=== PATIENT | female | born 1940 | race Caucasian/White ===

== ENCOUNTER 2019-02-10 05:43 | Inpatient (IN) | payer MEDICARE ==
[2019-02-02 13:53] LABS: CLARITY,URINE SLIGHTLY CLOUDY (Clear); COLOR,URINE YELLOW (Yellow); GLUCOSE, URINE NEGATIVE (Neg); KETONES,URINE NEGATIVE (Neg); LEUKOCYTE ESTERASE ,URINE SMALL (Neg); NITRITES, URINE NEGATIVE (Neg); OCCULT BLOOD,URINE NEGATIVE (Neg); PROTEIN,URINE NEGATIVE (Neg); UROBILINOGEN,URINE 0.2 E.U/dL (0.2-1.0)
[2019-02-02 13:53] LABS: BASOPHILS # (AUTO) 0.1 X10'3 (0-0.2); BASOPHILS % (AUTO) 1.3 % (0-1); EOSINOPHILS # (AUTO) 0.3 X10'3 (0-0.9); LYMPHOCYTES # (AUTO) 1.5 X10'3 (1.1-4.8); LYMPHOCYTES % (AUTO) 29.2 % (21-51); MEAN CORPUSCULAR HEMOGLOBIN 32.1 PG (27.0-31.0); MEAN CORPUSCULAR HGB CONC 33.6 g/dL (33.0-36.5); MEAN CORPUSCULAR VOLUME 95.5 FL (78-98); MONOCYTES # (AUTO) 0.5 X10'3 (0-0.9); MONOCYTES % (AUTO) 9.4 % (2-12); NEUTROPHILS # (AUTO) 2.9 X10'3 (1.8-7.7); NEUTROPHILS % (AUTO) 55.1 % (42-75); PRE OP HEMATOCRIT 38.5 % (35.0-45.0); PRE OP HEMOGLOBIN 12.9 g/dL (12.0-16.0); PRE OP PLATELET COUNT 149 X10'3 (140-440); RED BLOOD COUNT 4.03 X10'6 (4.20-5.60); RED CELL DISTRIBUTION WIDTH 13.8 % (11.5-14.5)
[2019-02-02 14:04] LABS: UA COLLECTION TYPE CLN CATCH MIDSTREAM
[2019-02-02 14:05] LABS: HYALINE CASTS 0-3 /LPF (NEGATIVE); SQUAMOUS EPITHELIAL CELL,UR MODERATE /LPF (FEW); TRANSITIONAL EPI CELLS,URINE MODERATE /HPF
[2019-02-02 14:06] LABS: BACTERIA,URINE 1+ /HPF (Neg); MUCUS STRANDS FEW /LPF (Neg)
[2019-02-02 14:07] LABS: RBC,URINE 0-2 /HPF (0-2)
[2019-02-02 14:11] LABS: PRE OP PROTIME 10.2 SECONDS (9.0-12.0)
[2019-02-02 14:15] LABS: ALBUMIN 3.7 G/DL (3.4-5.0); ALBUMIN/GLOBULIN RATIO 1.1 (1.1-1.5); ALKALINE PHOSPHATASE 79 IU/L (46-116); BLOOD UREA NITROGEN 25 MG/DL (7-18); BUN/CREATININE RATIO 27.8 (6.6-38.0); CALCIUM 9.6 MG/DL (8.5-10.1); CHLORIDE 104 MMOL/L (99-107); PRE OP ALT 27 U/L (30-65); PRE OP ANION GAP 10 (8-16); PRE OP AST 17 U/L (10-37); PRE OP BILIRUB, TOTAL 0.4 MG/DL (0.0-1.0); PRE OP GLUCOSE 119 MG/DL (70-104); PRE OP POTASSIUM 4.1 MMOL/L (3.4-5.1); PRE OP SODIUM 140 MMOL/L (135-145); TOTAL CARBON DIOXIDE 26.1 MMOL/L (24-32); TOTAL PROTEIN 7.2 G/DL (6.4-8.2); eGFR 61 ML/MIN
[2019-02-10] VITALS (17 sets, daily range): BP systolic 84–122; BP diastolic 40–72
[~2019-02-10] VITALS: Ht 162.6 cm; Wt 90.4 kg
[~2019-02-10 05:43] MED LIST: ALBU8.5H8 IH; BENA20TA82 PO; CALC-159 PO; ESCI5TAB PO; FLUT16SP26 BOTHNARES; MONT10TA21 PO; MULT-1085 PO; TRIA1TAB94 PO; albuterol 2.5 MG/3 ML nebule NEB ONE; cefazolin/dext.iso 2gm/100 ML IV ONE; famotidine 20mg tablet PO ONE; ringers solution, lacted 1,000 ML IV SCH; vancomycin inj 1,500 MG in normal saline 300ml IV soln IV ONE
[2019-02-10] MEDS ORDERED: LIDOcaine 1% (10mg/ml) 2ml vial ONE (06:28)
[2019-02-10] MEDS ORDERED: ROPIVAcaine 0.5% (5mg/ml) 30ml vial ONE (07:04)
[2019-02-10] MEDS ORDERED: ketorolac trometh. 30mg/ml inj. ONE (07:04)
[2019-02-10] MEDS ORDERED: fentaNYL/PF 50MCG/1 ML 2ML syringe ONE (07:26)
[2019-02-10] MEDS ORDERED: MIDAZolam 1mg/ml 10ml vial ONE (07:26)
[2019-02-10] MEDS ORDERED: ePHEDrine 50MG/ML INJ. ONE (07:42)
[2019-02-10] MEDS ORDERED: propofol inj 20 ML IV ONE (07:56)
[2019-02-10] MEDS ORDERED: tranexamic acid inj. 1,000 MG in normal saline 100ml IV soln 100 ML IV ONE ×3 (08:15→13:30)
[2019-02-10] MEDS ORDERED: ringers solution, lacted 1,000 ML IV SCH (08:54)
[2019-02-10] MEDS ORDERED: proCHLORperazine 10 MG/2 ml inj IV PRN (08:55)
[2019-02-10] MEDS ORDERED: meperidine/PF 25mg/ml syringe IV PRN ×3 (08:55)
[2019-02-10] MEDS ORDERED: ondansetron/PF 4mg/2ml inj IV PRN (08:55)
--- NOTE | 2019-02-10 10:38 | NUR ---
Received from OR via , accompanied by Anesthesiologist DR DUKE and report given by Anesthesiolgist. AWAKENS TO VOICE. VITALS STABLE. DRESSING DI. VIKAS PAIN. ABDUCTOR PILLOW IN PLACE. SENSATION TO THE FEET. FERNANDEZ WITH CLEAR URINE.
[2019-02-10] MEDS ORDERED: bisacodyl 10mg suppository rectal RC PRN (10:50)
[2019-02-10] MEDS ORDERED: CADD PCA waste documentation MC PRN (10:50)
[2019-02-10] MEDS ORDERED: naloxone 0.4 mg/ml inj IV PRN (10:50)
[2019-02-10] MEDS ORDERED: diphenhydrAMINE 25mg capsule PO PRN ×2 (10:50)
[2019-02-10] MEDS ORDERED: albuterol 2.5 MG/3 ML nebule NEB PRN ×2 (10:50→11:00)
[2019-02-10] MEDS ORDERED: magnesium hydroxide 30ml (MOM) UD suspension PO PRN (10:50)
[2019-02-10] MEDS ORDERED: mag hydrox/Alum hydrox/simeth 30ml oral suspension PO PRN (10:50)
[2019-02-10] MEDS ORDERED: HYDROcodone/acetaminophen 10/325mg tab PO PRN ×2 (10:50)
[2019-02-10] MEDS ORDERED: metoclopramide 5 mg/ml inj IV PRN (10:50)
[2019-02-10] MEDS ORDERED: acetaminophen 325mg tablet PO PRN (10:50)
[2019-02-10] MEDS ORDERED: HYDROmorphone/NS 1 mg/ml CADD 50 ML IV SCH (11:00)
--- NOTE | 2019-02-10 11:48 | NUR ---
Report called to receiving nurse. Transferred via [facility] . Special Issues communicated to receiving nurse. AWAKE AND ORIENTED. VITALS STABLE. DRESSING DI. STATES MILD DISCOMFORT TO RT HIP AREA. TO ORTHO RM [id number] AT THIS TIME.
[2019-02-10] MEDS: ondansetron/PF 4mg/2ml inj IV PRN (12:07)
[2019-02-10] MEDS: HYDROmorphone/NS 1 mg/ml CADD 50 ML IV SCH ×7 (12:07→23:00)
--- NOTE | 2019-02-10 14:22 | NUR ---
call from tele stating that pt is miguel down to the 30'4-40's, I talked to Diana Du and she advised fluids and keep the pt awake. Will continue to monitor
[2019-02-10] MEDS: gabapentin 300mg capsule PO SCH ×2 (14:36→20:30)
[2019-02-10] MEDS: acetaminophen 325mg tablet PO SCH ×2 (14:36→20:29)
[2019-02-10] MEDS: potassium cl 20mEq in 1/2 NS 1,000 ML IV SCH ×2 (16:53→18:50)
[2019-02-10] MEDS: ceFAZolin 1GM/D5W- ADD-VANTAGE 50 ML IV SCH ×2 (16:54→23:40)
[2019-02-10] MEDS ORDERED: vancomycin/NS 1 GM ADD-VANTAGE 250 ML IV SCH (20:00)
[2019-02-10] MEDS: sennosides/docusate sodium tablet PO SCH (20:00)
[2019-02-10] MEDS: CITALOpram 10mg tablet PO SCH (20:27)
[2019-02-10] MEDS: ascorbic acid 500mg tablet PO SCH (20:27)
[2019-02-10] MEDS: montelukast 10mg tablet PO SCH (20:29)
[2019-02-10] MEDS: lisinopril 20mg tablet PO SCH (21:00)
[2019-02-10] MEDS: sennosides 8.6mg tablet PO SCH (21:00)
[2019-02-11] MEDS: HYDROmorphone/NS 1 mg/ml CADD 50 ML IV SCH ×7 (01:00→13:00)
[2019-02-11 02:00] VITALS: BP 111/57
[2019-02-11] MEDS: acetaminophen 325mg tablet PO SCH ×4 (02:14→20:26)
[2019-02-11] MEDS: potassium cl 20mEq in 1/2 NS 1,000 ML IV SCH ×4 (02:14→21:48)
--- NOTE | 2019-02-11 06:06 | NUR ---
Problems reprioritized. Patient report given, questions answered & plan of care reviewed with MCKENNA Oshea. Patient stated that Percocet has been effective in the past.
[2019-02-11 06:10] VITALS: BP 99/45
[2019-02-11 06:12] LABS: BASOPHILS % (AUTO) 0.3 % (0-1); EOSINOPHILS # (AUTO) 0.1 X10'3 (0-0.9); EOSINOPHILS % (AUTO) 0.7 % (0-6); HEMATOCRIT 29.3 % (35.0-45.0); LYMPHOCYTES # (AUTO) 0.7 X10'3 (1.1-4.8); LYMPHOCYTES % (AUTO) 8.5 % (21-51); MEAN CORPUSCULAR HEMOGLOBIN 32.5 PG (27.0-31.0); MEAN CORPUSCULAR HGB CONC 34.2 g/dL (33.0-36.5); MEAN CORPUSCULAR VOLUME 95.1 FL (78-98); MEAN PLATELET VOLUME 9.8 FL (7.4-10.4); MONOCYTES # (AUTO) 0.6 X10'3 (0-0.9); MONOCYTES % (AUTO) 7.6 % (2-12); NEUTROPHILS # (AUTO) 6.4 X10'3 (1.8-7.7); NEUTROPHILS % (AUTO) 82.9 % (42-75); PLATELET COUNT 114 X10'3 (140-440); RED BLOOD COUNT 3.08 X10'6 (4.20-5.60); RED CELL DISTRIBUTION WIDTH 13.6 % (11.5-14.5); WHITE BLOOD COUNT 7.8 X10'3 (4.5-11.0)
[2019-02-11 06:25] LABS: ANION GAP 5 (8-16); CHLORIDE 106 MMOL/L (99-107); POTASSIUM 4.3 MMOL/L (3.5-5.1); SODIUM 139 MMOL/L (135-145)
--- NOTE | 2019-02-11 06:27 | NUR ---
I have received patient report from Sana Ratliff RN
--- NOTE | 2019-02-11 06:36 | NUR ---
Problems reprioritized. Patient report given, questions answered & plan of care reviewed with MCKENNA Oshea.
[2019-02-11] MEDS: sennosides/docusate sodium tablet PO SCH ×2 (08:00→20:00)
[2019-02-11] MEDS: ascorbic acid 500mg tablet PO SCH ×2 (08:02→20:26)
[2019-02-11] MEDS: multivitamins, therapeutics tablet PO SCH (08:02)
[2019-02-11] MEDS: calcium carbonate/vitamin D3 tablet PO SCH (08:02)
[2019-02-11] MEDS: gabapentin 300mg capsule PO SCH ×3 (08:03→20:27)
[2019-02-11] MEDS: enoxaparin 40mg/0.4ml syringe SQ SCH (08:04)
--- NOTE | 2019-02-11 09:45 | NUR ---
Patient homavac drain fell out during transfer from chair to bed. I will let Dr. Aceves know this.
[2019-02-11 10:00] VITALS: BP 111/51
--- NOTE | 2019-02-11 14:32 | NUR ---
I spoke to Dr. Aceves about hemovac falling apart and removing it. I also told him since patient was allergic to norco and has taken percoset before that she would like that instead when cadd comes down. He ordered 1 or 2 10mg percoset q4 hrs.
[2019-02-11] MEDS: oxyCODONE/APAP 10/325mg tablet PO PRN ×2 (15:08→22:04)
--- NOTE | 2019-02-11 15:45 | NUR ---
Joint replacement: Pt seen at bedside with friends present provided with written and verbal protein education and RD contact information. Pt endorses an "okay" appetite however documented with 100% PO intake at breakfast this morning and pt reports 100% PO intake of protein at lunch. Pt agreeable to yogurt BIDBD and cottage cheese QD with lunch, pt also requests beef or chicken broth TID. All food preferences d/w dietary. Pt denies any food allergies or difficulty chewing/swallowing. Will continue to follow. Addendum: 02/11/19 at [address] Amended: Links added.
[2019-02-11 18:00] VITALS: BP 110/53
--- NOTE | 2019-02-11 18:27 | NUR ---
Patient report given to Sana Ratliff RN
[2019-02-11] MEDS: CITALOpram 10mg tablet PO SCH (20:26)
[2019-02-11] MEDS: montelukast 10mg tablet PO SCH (20:26)
[2019-02-11] MEDS: lisinopril 20mg tablet PO SCH (20:29)
[2019-02-11] MEDS: sennosides 8.6mg tablet PO SCH (20:29)
[2019-02-11 22:00] VITALS: BP 107/67
[2019-02-12] MEDS: acetaminophen 325mg tablet PO SCH ×2 (02:00→07:27)
[2019-02-12] MEDS: oxyCODONE/APAP 10/325mg tablet PO PRN ×3 (05:34→23:05)
[2019-02-12 06:00] VITALS: BP 121/54
--- NOTE | 2019-02-12 06:00 | NUR ---
Patient in room ORTHO 4023. I have received report from and had the opportunity to ask questions and assume patient care MCKENNA Dominguez
--- NOTE | 2019-02-12 06:29 | NUR ---
Problems reprioritized. Patient report given, questions answered & plan of care reviewed with MCKENNA Patrick.
[2019-02-12 07:12] LABS: BASOPHILS % (AUTO) 0.3 % (0-1); EOSINOPHILS # (AUTO) 0.1 X10'3 (0-0.9); EOSINOPHILS % (AUTO) 1.8 % (0-6); HEMATOCRIT 28.5 % (35.0-45.0); HEMOGLOBIN 9.8 g/dl (12.0-16.0); LYMPHOCYTES # (AUTO) 0.6 X10'3 (1.1-4.8); LYMPHOCYTES % (AUTO) 7.7 % (21-51); MEAN CORPUSCULAR HEMOGLOBIN 33.1 PG (27.0-31.0); MEAN CORPUSCULAR HGB CONC 34.5 g/dL (33.0-36.5); MONOCYTES # (AUTO) 0.8 X10'3 (0-0.9); MONOCYTES % (AUTO) 9.9 % (2-12); NEUTROPHILS # (AUTO) 6.5 X10'3 (1.8-7.7); NEUTROPHILS % (AUTO) 80.3 % (42-75); PLATELET COUNT 106 X10'3 (140-440); RED BLOOD COUNT 2.97 X10'6 (4.20-5.60); RED CELL DISTRIBUTION WIDTH 13.6 % (11.5-14.5); WHITE BLOOD COUNT 8.1 X10'3 (4.5-11.0)
[2019-02-12] MEDS: calcium carbonate/vitamin D3 tablet PO SCH (07:26)
[2019-02-12] MEDS: ascorbic acid 500mg tablet PO SCH ×2 (07:26→20:42)
[2019-02-12] MEDS: multivitamins, therapeutics tablet PO SCH (07:26)
[2019-02-12] MEDS: gabapentin 300mg capsule PO SCH ×3 (07:26→20:42)
[2019-02-12] MEDS: sennosides/docusate sodium tablet PO SCH ×2 (08:00→20:44)
[2019-02-12] MEDS: enoxaparin 40mg/0.4ml syringe SQ SCH (08:00)
[2019-02-12 18:00] VITALS: BP 133/70
--- NOTE | 2019-02-12 18:39 | NUR ---
Problems reprioritized. Patient report given, questions answered & plan of care reviewed with MCKENNA Shipman.
--- NOTE | 2019-02-12 18:45 | NUR ---
Patient in room ORTHO 4023. I have received report from MCKENNA Patrick and had the opportunity to ask questions and assume patient care.
[2019-02-12] MEDS: ondansetron/PF 4mg/2ml inj IV PRN (19:16)
[2019-02-12] MEDS: montelukast 10mg tablet PO SCH (20:43)
[2019-02-12] MEDS: lisinopril 20mg tablet PO SCH (20:43)
[2019-02-12] MEDS: CITALOpram 10mg tablet PO SCH (20:43)
[2019-02-12] MEDS: sennosides 8.6mg tablet PO SCH (20:44)
[2019-02-12 22:00] VITALS: BP 114/52
[2019-02-13] MEDS: oxyCODONE/APAP 10/325mg tablet PO PRN (05:21)
[2019-02-13 06:00] VITALS: BP 90/60
--- NOTE | 2019-02-13 06:08 | NUR ---
Problems reprioritized. Patient report given, questions answered & plan of care reviewed with MCKENNA Curtis.
[2019-02-13 06:36] LABS: BASOPHILS % (AUTO) 0.4 % (0-1); EOSINOPHILS # (AUTO) 0.3 X10'3 (0-0.9); EOSINOPHILS % (AUTO) 4.1 % (0-6); HEMATOCRIT 26.4 % (35.0-45.0); HEMOGLOBIN 8.9 g/dl (12.0-16.0); LYMPHOCYTES # (AUTO) 0.8 X10'3 (1.1-4.8); LYMPHOCYTES % (AUTO) 9.9 % (21-51); MEAN CORPUSCULAR HEMOGLOBIN 32.3 PG (27.0-31.0); MEAN CORPUSCULAR HGB CONC 33.7 g/dL (33.0-36.5); MEAN PLATELET VOLUME 10.2 FL (7.4-10.4); MONOCYTES # (AUTO) 0.9 X10'3 (0-0.9); NEUTROPHILS # (AUTO) 6.1 X10'3 (1.8-7.7); NEUTROPHILS % (AUTO) 74.6 % (42-75); PLATELET COUNT 127 X10'3 (140-440); RED BLOOD COUNT 2.75 X10'6 (4.20-5.60); RED CELL DISTRIBUTION WIDTH 13.7 % (11.5-14.5); WHITE BLOOD COUNT 8.1 X10'3 (4.5-11.0)
[2019-02-13] MEDS: calcium carbonate/vitamin D3 tablet PO SCH (09:05)
[2019-02-13] MEDS: gabapentin 300mg capsule PO SCH ×3 (09:05→20:49)
[2019-02-13] MEDS: sennosides/docusate sodium tablet PO SCH ×2 (09:05→19:14)
[2019-02-13] MEDS: enoxaparin 40mg/0.4ml syringe SQ SCH (09:06)
[2019-02-13] MEDS: ascorbic acid 500mg tablet PO SCH ×2 (09:06→19:14)
[2019-02-13] MEDS: multivitamins, therapeutics tablet PO SCH (09:06)
[2019-02-13 10:00] VITALS: BP 76/54
[2019-02-13 11:30] VITALS: BP 110/72
[2019-02-13 14:20] VITALS: BP 108/75
[2019-02-13 17:00] VITALS: BP 93/56
--- NOTE | 2019-02-13 18:03 | NUR ---
Patient in room ORTHO 4023. I have received report from Rani ANDRES and had the opportunity to ask questions and assume patient care.
[2019-02-13] MEDS: lisinopril 20mg tablet PO SCH (20:45)
[2019-02-13] MEDS: sennosides 8.6mg tablet PO SCH (20:48)
[2019-02-13] MEDS: CITALOpram 10mg tablet PO SCH (20:49)
[2019-02-13] MEDS: montelukast 10mg tablet PO SCH (20:49)
[2019-02-13 22:00] VITALS: BP 90/54
[2019-02-14] MEDS: oxyCODONE/APAP 10/325mg tablet PO PRN ×2 (04:04→22:14)
[2019-02-14 05:00] VITALS: BP 90/54
--- NOTE | 2019-02-14 06:03 | NUR ---
Problems reprioritized. Patient report given, questions answered & plan of care reviewed with Rani ANDRES.
[2019-02-14] MEDS: calcium carbonate/vitamin D3 tablet PO SCH (08:39)
[2019-02-14] MEDS: gabapentin 300mg capsule PO SCH ×3 (08:39→20:03)
[2019-02-14] MEDS: ascorbic acid 500mg tablet PO SCH ×2 (08:39→20:05)
[2019-02-14] MEDS: sennosides/docusate sodium tablet PO SCH ×2 (08:39→20:00)
[2019-02-14] MEDS: multivitamins, therapeutics tablet PO SCH (08:39)
[2019-02-14] MEDS: enoxaparin 40mg/0.4ml syringe SQ SCH (08:40)
[2019-02-14 10:00] VITALS: BP 103/50
[2019-02-14 18:00] VITALS: BP 114/52
[2019-02-14] MEDS: sennosides 8.6mg tablet PO SCH (20:03)
[2019-02-14] MEDS: CITALOpram 10mg tablet PO SCH (20:06)
[2019-02-14] MEDS: montelukast 10mg tablet PO SCH (20:06)
[2019-02-14] MEDS: lisinopril 20mg tablet PO SCH (20:14)
[2019-02-14 22:00] VITALS: BP 113/52
[2019-02-15 05:00] VITALS: BP 107/53
[2019-02-15] MEDS: oxyCODONE/APAP 10/325mg tablet PO PRN (05:24)
[2019-02-15] MEDS: multivitamins, therapeutics tablet PO SCH (07:43)
[2019-02-15] MEDS: sennosides/docusate sodium tablet PO SCH (07:43)
[2019-02-15] MEDS: calcium carbonate/vitamin D3 tablet PO SCH (07:43)
[2019-02-15] MEDS: gabapentin 300mg capsule PO SCH ×2 (07:43→12:49)
[2019-02-15] MEDS: ascorbic acid 500mg tablet PO SCH (07:44)
[2019-02-15] MEDS: indomethacin 25mg capsule PO SCH ×2 (07:44→12:49)
[2019-02-15] MEDS: enoxaparin 40mg/0.4ml syringe SQ SCH (07:45)
--- NOTE | 2019-02-15 09:10 | NUR ---
Received telephone message from MCKENNA Plummer on noc shifts that reported pt's daughter who lives in [place], called in during the night with multiple complaints and she would like to speak with me. Kavitha reports her daughter is a Visual Training Aide who lives in [place]. Spoke to pt at her bedside regarding phone call. Informed pt that her daughter from [place] had called in during the night, and had multiple complaints voiced over the phone, and asked pt if she had any complaints or current issues that need to be resolved about her medical care while she has been at [facility] admitted on 02/10. Pt stated "No, that's just my daughter, and she doesn't live her so she doesn't know what is going on." When pt was asked if she would like me to return the phone call to her daughter about pts care. Pt stated "No, I do not want you to return a phone call to her. If she has any questions, she can call me, but she doesn't have any idea what is going on."
--- NOTE | 2019-02-15 15:30 | NUR ---
Received discharge orders for pt to transport to [facility] today at 1530. Report called to MCKENNA Su at [facility] at 1410. [employer] arrived to orange picking supervisor the patient at 1530 via [place]. Pt transported To [facility] at 1530.
== END 2019-02-15 15:15 | DRG 470 ==
LOC: PAS IN 05:43 → EDSTATUS 07:30 → ORTHO 4S 11:50
PROVIDERS: ADMIT Orthopaedic Surgery; ATTEND Orthopaedic Surgery
PROC: 0SR904A Replacement of Right Hip Joint with Ceramic on Polyethylene Synthetic Substitute, Uncemented, Open Approach (ICD-10-PCS; 2019-02-10)
PROC: 0QS604Z Reposition Right Upper Femur with Internal Fixation Device, Open Approach (ICD-10-PCS; principal; 2019-02-10 07:29)
DX: M16.11 Unilateral primary osteoarthritis, right hip (principal); D62 Acute posthemorrhagic anemia; M84.451A Pathological fracture, right femur, initial encounter for fracture; I10 Essential (primary) hypertension; J44.9 Chronic obstructive pulmonary disease, unspecified; K58.9 Irritable bowel syndrome, unspecified; F32.9 Major depressive disorder, single episode, unspecified; Z96.611 Presence of right artificial shoulder joint; K21.9 Gastro-esophageal reflux disease without esophagitis; E66.01 Morbid (severe) obesity due to excess calories; Z96.651 Presence of right artificial knee joint; X58.XXXA Exposure to other specified factors, initial encounter; Z96.642 Presence of left artificial hip joint; Z90.11 Acquired absence of right breast and nipple; Z88.2 Allergy status to sulfonamides; Z88.6 Allergy status to analgesic agent; Z88.8 Allergy status to other drugs, medicaments and biological substances; Z85.3 Personal history of malignant neoplasm of breast; Z79.899 Other long term (current) drug therapy; Z87.891 Personal history of nicotine dependence; Y93.89 Activity, other specified; Y92.89 Other specified places as the place of occurrence of the external cause; Y99.8 Other external cause status
CPT/HCPCS: 36415; 73502; 76000; 80051; 80053; 81001; 82948; 85025; 85610; 85730; 86885; 86900; 86901; 87077; 87081; 87088; 87186; 94640; 94760; 97110; 97116; 97161; 97530; A6250; A6258; A6446; A6449; A6455; A7000; C1758; C1776; G0378; J0690; J1170; J1644; J1650; J1885; J2001; J2175; J2250; J2405; J2704; J2765; J2795; J3010; J3370; J3480; J7030; J7120

== ENCOUNTER 2019-02-26 14:09 | Emergency (ER) | payer MEDICARE ==
[~2019-02-26] VITALS: Ht 162.6 cm; Wt 84.1 kg
[~2019-02-26 14:09] MED LIST changes: -albuterol 2.5 MG/3 ML nebule NEB ONE; -cefazolin/dext.iso 2gm/100 ML IV ONE; -famotidine 20mg tablet PO ONE; -ringers solution, lacted 1,000 ML IV SCH; -vancomycin inj 1,500 MG in normal saline 300ml IV soln IV ONE
[2019-02-26 14:47] LABS: BASOPHILS # (AUTO) 0.1 X10'3 (0-0.2); BASOPHILS % (AUTO) 1.4 % (0-1); EOSINOPHILS # (AUTO) 0.1 X10'3 (0-0.9); EOSINOPHILS % (AUTO) 1.8 % (0-6); HEMATOCRIT 31.8 % (35.0-45.0); HEMOGLOBIN 10.9 g/dl (12.0-16.0); LYMPHOCYTES # (AUTO) 0.7 X10'3 (1.1-4.8); LYMPHOCYTES % (AUTO) 10.4 % (21-51); MEAN CORPUSCULAR HEMOGLOBIN 31.8 PG (27.0-31.0); MEAN CORPUSCULAR HGB CONC 34.2 g/dL (33.0-36.5); MEAN CORPUSCULAR VOLUME 93.1 FL (78-98); MEAN PLATELET VOLUME 8.7 FL (7.4-10.4); MONOCYTES # (AUTO) 0.8 X10'3 (0-0.9); MONOCYTES % (AUTO) 10.9 % (2-12); NEUTROPHILS # (AUTO) 5.4 X10'3 (1.8-7.7); NEUTROPHILS % (AUTO) 75.5 % (42-75); PLATELET COUNT 296 X10'3 (140-440); RED BLOOD COUNT 3.42 X10'6 (4.20-5.60); RED CELL DISTRIBUTION WIDTH 13.5 % (11.5-14.5); WHITE BLOOD COUNT 7.1 X10'3 (4.5-11.0)
[2019-02-26 15:07] LABS: ALANINE AMINOTRANSFERASE 28 U/L (12-78); ALBUMIN/GLOBULIN RATIO 0.8 (1.1-1.5); ALKALINE PHOSPHATASE 95 IU/L (46-116); ANION GAP 9 (8-16); ASPARTATE AMINO TRANSFERASE 18 U/L (10-37); BILIRUBIN,TOTAL 0.5 MG/DL (0.1-1.0); BLOOD UREA NITROGEN 30 MG/DL (7-18); CALCIUM 9.2 MG/DL (8.5-10.1); CHLORIDE 103 MMOL/L (99-107); CREATININE 0.79 MG/DL (0.40-0.90); GLUCOSE 106 MG/DL (70-104); POTASSIUM 3.9 MMOL/L (3.5-5.1); SODIUM 139 MMOL/L (135-145); TOTAL CARBON DIOXIDE 27.2 MMOL/L (24-32); TOTAL PROTEIN 6.8 G/DL (6.4-8.2); eGFR 70 ML/MIN
[2019-02-26] MEDS ORDERED: CLIN-96 PO (15:26)
[2019-02-26 15:35] VITALS: BP 123/80
== END 2019-02-26 15:37 | disposition home or self-care (01) ==
LOC: ER 14:10
DX: T81.89XA Other complications of procedures, not elsewhere classified, initial encounter (principal); I11.0 Hypertensive heart disease with heart failure; I50.9 Heart failure, unspecified; J45.909 Unspecified asthma, uncomplicated; Z98.890 Other specified postprocedural states; Z79.899 Other long term (current) drug therapy; Z96.641 Presence of right artificial hip joint; Z88.5 Allergy status to narcotic agent; Z88.2 Allergy status to sulfonamides; Z88.6 Allergy status to analgesic agent; Y92.89 Other specified places as the place of occurrence of the external cause
CPT/HCPCS: 36415; 80053; 85025; 87070; 99284

== ENCOUNTER 2019-03-25 15:59 | Emergency (ER) | payer MEDICARE ==
[~2019-03-25] VITALS: Ht 165.1 cm; Wt 87.0 kg
[~2019-03-25 15:59] MED LIST changes: +CLIN-96 PO
[2019-03-25 17:11] LABS: BASOPHILS # (AUTO) 0.1 X10'3 (0-0.2); EOSINOPHILS # (AUTO) 0.2 X10'3 (0-0.9); EOSINOPHILS % (AUTO) 3.2 % (0-6); HEMATOCRIT 34.1 % (35.0-45.0); HEMOGLOBIN 11.2 g/dl (12.0-16.0); LYMPHOCYTES # (AUTO) 1.1 X10'3 (1.1-4.8); MEAN CORPUSCULAR HEMOGLOBIN 30.2 PG (27.0-31.0); MEAN CORPUSCULAR VOLUME 91.4 FL (78-98); MEAN PLATELET VOLUME 9.1 FL (7.4-10.4); MONOCYTES # (AUTO) 0.6 X10'3 (0-0.9); MONOCYTES % (AUTO) 9.9 % (2-12); NEUTROPHILS # (AUTO) 4.1 X10'3 (1.8-7.7); NEUTROPHILS % (AUTO) 67.9 % (42-75); PLATELET COUNT 206 X10'3 (140-440); RED BLOOD COUNT 3.73 X10'6 (4.20-5.60); RED CELL DISTRIBUTION WIDTH 14.3 % (11.5-14.5)
[2019-03-25] MEDS ORDERED: iohexol 300mg/ml 100ml inj. ONE (17:16)
[2019-03-25 17:31] LABS: ALANINE AMINOTRANSFERASE 17 U/L (12-78); ALBUMIN 3.4 G/DL (3.4-5.0); ALBUMIN/GLOBULIN RATIO 0.9 (1.1-1.5); ALKALINE PHOSPHATASE 100 IU/L (46-116); ANION GAP 11 (8-16); ASPARTATE AMINO TRANSFERASE 17 U/L (10-37); BILIRUBIN,TOTAL 0.5 MG/DL (0.1-1.0); BLOOD UREA NITROGEN 24 MG/DL (7-18); BUN/CREATININE RATIO 27.6 (6.6-38.0); C-REACTIVE PROTEIN 0.94 MG/DL (0.0-0.5); CALCIUM 9.7 MG/DL (8.5-10.1); CHLORIDE 105 MMOL/L (99-107); CREATININE 0.87 MG/DL (0.40-0.90); GLUCOSE 87 MG/DL (70-104); POTASSIUM 3.7 MMOL/L (3.5-5.1); SODIUM 142 MMOL/L (135-145); TOTAL CARBON DIOXIDE 26.4 MMOL/L (24-32); TOTAL PROTEIN 7.3 G/DL (6.4-8.2); eGFR 63 ML/MIN
--- NOTE | 2019-03-25 18:08 | NUR ---
Pt transported to CT scan.
[2019-03-25] MEDS ORDERED: CEPH500C5 PO (19:45)
[2019-03-25 20:00] VITALS: BP 128/96
== END 2019-03-25 20:02 | disposition home or self-care (01) ==
LOC: ER 15:59
DX: L03.115 Cellulitis of right lower limb (principal); I11.0 Hypertensive heart disease with heart failure; I50.9 Heart failure, unspecified; J45.909 Unspecified asthma, uncomplicated; Z98.890 Other specified postprocedural states; Z88.8 Allergy status to other drugs, medicaments and biological substances; Z88.2 Allergy status to sulfonamides; Z88.5 Allergy status to narcotic agent; Z79.899 Other long term (current) drug therapy
CPT/HCPCS: 36415; 73701; 80053; 84145; 85025; 85651; 86140; 99284; Q9967